=== PATIENT | male | born 1995 | race Caucasian/White ===

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

== ENCOUNTER 2017-10-24 20:41 | Emergency (ER) | payer OTHER ==
[2017-10-24 20:52] VITALS: BP 128/82
[2017-10-24] MEDS ORDERED: Albuterol HFA INHALER* 8 gm MDI INH ONE (21:04)
--- NOTE | 2017-10-24 21:05 | UC ---
Respiratory Complaint HPI - HPI Summary HPI Summary: needs albuterol MDI refilled---has been having some cough and wheezing with viral illness - History of Current Complaint Chief Complaint: UCMedRefill Stated Complaint: INHALER REFIL Time Seen by Provider: 10/24/17 20:52 Hx Obtained From: Patient Timing: Intermittent Episodes Severity Initially: Mild Severity Currently: Mild Character: Cough: Nonproductive Aggravating Factors: Nothing Alleviating Factors: Nothing Associated Signs And Symptoms: Positive: URI - Allergies/Home Medications Allergies/Adverse Reactions: Allergies Allergy/AdvReac Type Severity Reaction Status Date / Time No Known Allergies Allergy Verified 10/24/17 20:52 PMH/Surg Hx/FS Hx/Imm Hx Respiratory History: Asthma - mild intermittent - Surgical History Surgical History: Yes Surgery Procedure, Year, and Place: left ankle - Family History Known Family History: Positive: None Family History: no know issues in family lineage - Social History Occupation: Employed Full-time Lives: With Family Alcohol Use: None Substance Use Type: None Smoking Status (MU): Heavy Every Day Tobacco Smoker Type: Cigarettes Amount Used/How Often: 1 ppd Have You Smoked in the Last Year: Yes Household Exposure Type: Cigarettes Cessation Counseling: Patient Advised to Stop Review of Systems Constitutional: Negative Skin: Negative Eyes: Negative ENT: Negative Respiratory: Cough Cardiovascular: Negative Gastrointestinal: Negative Genitourinary: Negative Motor: Negative Neurovascular: Negative Musculoskeletal: Negative Neurological: Negative Psychological: Negative Is Patient Immunocompromised?: No All Other Systems Reviewed And Are Negative: Yes Physical Exam Triage Information Reviewed: Yes Appearance: Well-Appearing, No Pain Distress, Well-Nourished Vital Signs: Initial Vital Signs Temp 98 F 10/24/17 20:49 Pulse 63 10/24/17 20:49 Resp 14 10/24/17 20:49 BP 128/82 10/24/17 20:49 Pulse Ox 98 10/24/17 20:49 Vital Signs Reviewed: Yes Eye Exam: Normal Eyes: Positive: Conjunctiva Clear ENT Exam: Normal ENT: Positive: Normal ENT inspection, Hearing grossly normal, TMs normal, Uvula midline. Negative: Nasal congestion, Nasal drainage, Tonsillar swelling, Tonsillar exudate, Trismus, Muffled voice, Hoarse voice, Dental tenderness, Sinus tenderness Dental Exam: Normal Neck exam: Normal Neck: Positive: Supple, Nontender, No Lymphadenopathy Respiratory Exam: Normal Respiratory: Positive: Chest non-tender, Lungs clear, Normal breath sounds, No respiratory distress, No accessory muscle use Cardiovascular Exam: Normal Cardiovascular: Positive: RRR, No Murmur, Pulses Normal, Brisk Capillary Refill Musculoskeletal Exam: Normal Musculoskeletal: Positive: Strength Intact, ROM Intact, No Edema Neurological Exam: Normal Neurological: Positive: Alert, Muscle Tone Normal Psychological Exam: Normal Skin Exam: Normal UC Diagnostic Evaluation - Laboratory O2 Sat by Pulse Oximetry: 98 Respiratory Course/Dx - Course Course Of Treatment: refill albuterol, smoking cesasation information, follow with pcp - Differential Dx/Diagnosis Provider Diagnoses: acute exacerbation of mild intermittent asthma, nicotine dependent Discharge - Discharge Plan Condition: Stable Disposition: HOME Prescriptions: Albuterol HFA INHALER* [Ventolin HFA Inhaler*] 2 puff INH Q4H PRN #1 mdi PRN Reason: Wheezing Patient Education Materials: Asthma (ED), How to Use a Metered-Dose Inhaler and a Spacer (ED) Referrals: Cabrera Hawk MD [Primary Care Provider] - If Needed
== END 2017-10-24 21:13 | disposition home or self-care (01) ==
LOC: UCCORT 20:41
DX: J45.21 Mild intermittent asthma with (acute) exacerbation (principal); Z76.0 Encounter for issue of repeat prescription; F17.210 Nicotine dependence, cigarettes, uncomplicated
CPT/HCPCS: 99212; A9270-GY; G0463

== ENCOUNTER 2019-08-27 20:19 | Emergency (ER) | payer OTHER ==
[2019-08-27 20:35] VITALS: BP 132/88
--- NOTE | 2019-08-27 20:46 | UC ---
Ear Complaint HPI - HPI Summary HPI Summary: 23 yo with acute onset of right ear pain several hours ago, with some relief with ibuprofen 800mg. Hearing is decreased, and he feels a little off balance. Does sometimes use q-tips. - History of Current Complaint Chief Complaint: UCEar Stated Complaint: RIGHT EAR COMPLAINT Time Seen by Provider: 08/27/19 20:41 Hx Obtained From: Patient Onset/Duration: Sudden Onset, Lasting Hours Severity Initially: Moderate Severity Currently: Moderate Pain Intensity: 7 Associated Signs/Symptoms: Positive: URI Symptoms - has sore throat in addition to sore ear. - Allergies/Home Medications Allergies/Adverse Reactions: Allergies Allergy/AdvReac Type Severity Reaction Status Date / Time No Known Allergies Allergy Verified 08/27/19 20:35 PMH/Surg Hx/FS Hx/Imm Hx Previously Healthy: Yes - Surgical History Surgical History: Yes Surgery Procedure, Year, and Place: left ankle - Family History Known Family History: Positive: Hypertension - father, Other - mother and maternal uncle of sarcoma Family History: no know issues in family lineage - Social History Occupation: Employed Full-time Lives: With Family Alcohol Use: Occasionally Substance Use Type: Marijuana Smoking Status (MU): Heavy Every Day Tobacco Smoker Type: eCigarettes Amount Used/How Often: 1 ppd Have You Smoked in the Last Year: Yes Household Exposure Type: Cigarettes Review of Systems All Other Systems Reviewed And Are Negative: Yes Constitutional: Positive: Negative Skin: Positive: Negative Eyes: Positive: Negative ENT: Positive: Sore Throat, Ear Ache Respiratory: Positive: Negative Cardiovascular: Positive: Negative Gastrointestinal: Positive: Negative Genitourinary: Positive: Negative Motor: Positive: Negative Neurovascular: Positive: Negative Musculoskeletal: Positive: Negative Neurological: Positive: Negative Psychological: Positive: Negative Physical Exam Triage Information Reviewed: Yes Appearance: Pain Distress - mild to moderate, Thin Vital Signs: Initial Vital Signs Temp 98.3 F 08/27/19 20:30 Pulse 81 08/27/19 20:30 Resp 16 08/27/19 20:30 BP 132/88 08/27/19 20:30 Pulse Ox 100 08/27/19 20:30 Eyes: Positive: Conjunctiva Clear ENT: Positive: Pharyngeal erythema, TM dull, TM red, Tonsillar swelling, Other - right ear canal with soft cerumen, ++erythema. Following irrigation with partial removal, a large plug of wax was removed with the curette. Ear canal deeply erythematous with swelling, and left TM is dull and red.. Negative: Tonsillar exudate Neck: Positive: Supple, Nontender, No Lymphadenopathy Respiratory: Positive: Lungs clear, Normal breath sounds Cardiovascular: Positive: RRR, No Murmur Musculoskeletal Exam: Normal Neurological Exam: Normal Psychological Exam: Normal Ear Complaint Course/Dx - Course Course Of Treatment: cephalexin x 5 days for treatment of otitis externa/media, with ibuprofen and acetaminophen for control of pain. - Differential Dx/Diagnosis Differential Diagnosis/HQI/PQRI: Cerumen Impaction, Otitis Externa, Otitis Media Provider Diagnosis: Right otitis media Discharge ED - Sign-Out/Discharge Documenting (check all that apply): Patient Departure All imaging exams completed and their final reports reviewed: No Studies - Discharge Plan Condition: Stable Disposition: HOME Prescriptions: cephALEXin [Keflex] 500 mg PO TID #15 capsule Patient Education Materials: Ear Infection (ED) Forms: *Work Release Referrals: No Primary Care Phys,NOPCP [Primary Care Provider] - Additional Instructions: you have been prescribed cephalexin to treat your ear infection. You have had the first dose tonight. Continue ibuprofen 800mg up to 3 times per day for control of pain. - Billing Disposition and Condition Condition: STABLE Disposition: Home
[2019-08-27] MEDS ORDERED: Acetaminophen TAB* 325 MG PO ONE (21:05)
[2019-08-27] MEDS ORDERED: Cephalexin CAP* 500 MG PO ONE (21:05)
== END 2019-08-27 21:13 | disposition home or self-care (01) ==
LOC: UCCORT 20:19
DX: H66.91 Otitis media, unspecified, right ear (principal); F17.290 Nicotine dependence, other tobacco product, uncomplicated
CPT/HCPCS: 99213; A9270-GY; G0463